=== PATIENT | female | born 1960 | race Caucasian/White ===

== ENCOUNTER → 2020-11-21 | Outpatient (CLI) | payer BC ==
--- NOTE | 2020-11-21 15:22 | KCIC ---
EXAMINATION: MRI RIGHT KNEE WITHOUT IV CONTRAST CLINICAL HISTORY: Chronic right knee pain, greatest medially TECHNIQUE: Multiplanar multisequential images obtained through the knee without intravenous contrast. COMPARISON: Right knee radiographs 11/12/2020 FINDINGS: MENISCI: Medial Meniscus: Complex tear with likely dominant horizontal component in the posterior horn and bod y and extrusion of the body Lateral Meniscus: Intact. LIGAMENTS: ACL: Intact PCL: Intact MCL: Intact LCL Complex: Intact CARTILAGE: Multiple punctate hypodensities in the medial and lateral compartments, compatible with chondrocalcin osis. Medial Femoral Condyle: Moderate sized area(s) of predominantly low grade (less than 50% thickness) c artilage loss and or fissuring with smaller area(s) of full thickness cartilage loss and or fissuring Medial Tibial Plateau: Small areas(s) of predominantly low grade (less than 50% thickness) cartilage loss and or fissuring with smaller area(s) of full thickness cartilage loss and or fissuring with sub chondral marrow reactive/cystic changes Lateral Femoral Condyle: Normal Lateral Tibial Plateau: Small area(s) of low grade (less than 50% thickness) partial thickness cartil age loss and or fissuring Patella: Normal Trochlea: Normal TENDONS: Distal quadriceps and patellar tendons intact. Popliteus tendon intact. BONES AND MARROW: No evidence of acute fracture or suspicious marrow replacing process. Mild lateral subluxation and tilt of the patella which appears to only be articulating with the lateral trochlea. Several small ossicles along the medial aspect of the patella and mild irregularity along the medial patellar margin. Constellation of findings compatible with remote medial patellar retinaculum injury at the patellar attachment. MUSCLES: Muscle bulk and signal intensity within normal limits. JOINT FLUID AND SYNOVIUM: Moderate joint effusion. Mild synovitis. Large Ramirez's cyst measuring up to 7.7 cm, partially ruptured inferiorly. IMPRESSION: Medial meniscus tear and mild full-thickness chondral wear in the medial compartment. Likely sequelae of remote medial patellar retinaculum injury as described. Large Ramirez's cyst. Electronically signed by: Alex Lopez DO (11/21/2020 3:19 PM) [id number]
== END ==
LOC: KCIC MRI 12:27
PROVIDERS: ATTEND Physician Assistant Medical
DX: M25.461 Effusion, right knee (principal); M65.88 Other synovitis and tenosynovitis, other site; M71.21 Synovial cyst of popliteal space [Baker], right knee
CPT/HCPCS: 73721

== ENCOUNTER → 2020-12-11 | Outpatient (CLI) | payer BC ==
--- NOTE | 2020-12-11 14:23 | KCIC ---
Study: MRI of the left hand without contrast INDICATION: Chronic nodule along the left fourth digit. COMPARISON: Radiographs from 11/25/2020 TECHNIQUE: Multiplanar MR imaging of the left hand performed without contrast. The [id number] is c entered on the fourth digit. FINDINGS: Bones/cartilage: Mild arthrosis at the little finger DIP joint. Trace chronic cystic change of the lo ng finger middle phalanx adjacent to the PIP joint. No acute fracture or focally aggressive marrow si gnal abnormality. Ligaments: Mineralization of the radial collateral ligament of the ring finger DIP joint. No surround ing edema is apparent or joint effusion. No similar mineralization seen elsewhere. No acute capsuloli gamentous injury. Musculotendinous: The visualized tendons are intact and normally located. Miscellaneous: None. IMPRESSION: Mineralization of the radial collateral ligament associated with the ring finger DIP joint. No surrou nding soft tissue/marrow edema or joint effusion to suggest acute calcific periarthritis. The appeara nce is nonspecific but could represent dystrophic mineralization from previous trauma or quiescent de position of hydroxyapatite or calcium pyrophosphate crystals. Electronically signed by: SUN VIRAMONTES MD (12/11/2020 2:21 PM) [id number]
== END ==
LOC: KCIC MRI 12:28
PROVIDERS: ATTEND Physician Assistant
DX: R22.32 Localized swelling, mass and lump, left upper limb (principal)
CPT/HCPCS: 73218